=== PATIENT | male | born 1980 ===

== ENCOUNTER 2017-05-20 16:43 | Inpatient (IN) | payer OTHER ==
[2017-05-20] MEDS ORDERED: ONDANSETRON 4 MG/2 ML VIAL IVP PRN (19:36)
[2017-05-20] MEDS ORDERED: ACETAMINOPHEN TAB 325 MG TAB PO PRN (19:36)
[2017-05-20] MEDS: HYDROcodone/APAP 5-325MG 1 EACH TAB PO PRN (20:18)
[2017-05-20] MEDS: hydrALAZINE HCL 25 MG TAB PO SCH (20:21)
[2017-05-20] MEDS: SODIUM CHLORIDE 0.9% 1,000 ML IV SCH (20:21)
[2017-05-20 20:43] LABS: Basophils % (A) 0 %; CH 32.2; CHCM 36.6; Eosinophils # (A) 0.1 k/uL (0-0.7); Eosinophils % (A) 1 %; HCT 42.2 % (39.0-53.0); HDW 2.21; HGB 15.5 gm/dL (13.0-17.5); Luc % (Auto) 2; Lymphocytes # (A) 1.8 k/uL (1.0-4.8); Lymphocytes % (A) 17 %; MCH 32.4 pg (25.0-35.0); MCHC 36.7 g/dL (31.0-37.0); MCV 88.1 fL (80.0-100.0); Mean Platelet Volume 7.6; Monocytes # (A) 1.4 k/uL (0-1.0); Monocytes % (A) 14 %; Neutrophils # (A) 6.9 k/uL (1.3-7.7); Neutrophils % (A) 66 %; RBC 4.79 m/uL (4.30-5.90); RDW 12.6 % (11.5-15.5); WBC 10.3 k/uL (3.8-10.6); WBC (Perox) 10.44
[2017-05-20 20:52] LABS: Calcium 8.5 mg/dL (8.4-10.2); Potassium 3.4 mmol/L (3.5-5.1)
[2017-05-20 22:33] LABS: Appearance,Urine Cloudy (Clear); Bilirubin,Urine Negative (Negative); Glucose,Urine (UA) Negative (Negative); Ketones,Urine Negative (Negative); Leukocyte Esterase,Urine Negative (Negative); Mucus,Urine Rare /hpf; Nitrite,Urine Negative (Negative); Particle Count 2589; Protein,Urine Trace (Negative); RBC,Urine 2 /hpf (0-5); Squamous Epithelial Cell,Urine 1 /hpf (0-4); UA Billing (MACRO vs. MICRO) MICRO; Urobilinogen,Urine <2.0 mg/dL (<2.0); WBC,Urine 9 /hpf (0-5)
--- NOTE | 2017-05-20 23:54 | US ---
EXAM: US Retroperitoneal Limited, Renal CLINICAL HISTORY: Reason: acute renal failure TECHNIQUE: Real-time ultrasound of the retroperitoneum (limited) with image documentation. COMPARISON: None FINDINGS: Right kidney: Right kidney measures 13.1 cm in length. Normal appearance of the parenchyma. No hydronephrosis or stone. No mass. Left kidney: Left kidney measures 13.0 cm in length. Normal appearance of the parenchyma. No hydronephrosis or stone. No mass. Ureters: Nondilated. Bladder: Bilateral ureteral jets noted. No wall thickening or stone. No mass. IMPRESSION: Normal renal ultrasound.
[2017-05-21] MEDS ORDERED: TEMAZEPAM 15 MG CAP PO PRN (00:20)
[2017-05-21] MEDS: hydrALAZINE HCL 25 MG TAB PO SCH ×4 (00:21→22:41)
[2017-05-21] MEDS: HYDROmorphone 1 MG/ML 1 ML SYRINGE IVP PRN ×2 (03:59→22:42)
[2017-05-21] MEDS: SODIUM CHLORIDE 0.9% 1,000 ML IV SCH ×4 (04:14→20:14)
[2017-05-21] MEDS: HYDROcodone/APAP 5-325MG 1 EACH TAB PO PRN ×4 (05:59→20:27)
[2017-05-21 08:03] LABS: Calcium 8.4 mg/dL (8.4-10.2); Total Bilirubin 0.8 mg/dL (0.2-1.3); Total Protein 6.7 g/dL (6.3-8.2)
[2017-05-21] MEDS: NICOTINE 14MG/24HR PATCH TRANSDERM SCH (08:43)
[2017-05-21] MEDS ORDERED: PANTOPRAZOLE 40 MG/10 ML VIAL IVP SCH (09:00)
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
[2017-05-21 13:11] VITALS: BMI 25.2
[2017-05-22] MEDS: HYDROcodone/APAP 5-325MG 1 EACH TAB PO PRN ×3 (02:12→12:17)
[2017-05-22] MEDS: SODIUM CHLORIDE 0.9% 1,000 ML IV SCH (05:52)
[2017-05-22] MEDS ORDERED: PANTOPRAZOLE 40 MG TABLET PO SCH (07:30)
[2017-05-22 07:44] VITALS: BP 119/79; PULSE 62; RESP 18; TEMP 97
--- NOTE | 2017-05-22 08:00 | XR ---
EXAMINATION TYPE: XR chest 1V portable DATE OF EXAM: 05/22/2017 Comparison: None Clinical History: 36-year-old male with kidney failure, evaluate CHF Findings: The cardiomediastinal silhouette, aorta, and pulmonary vasculature are within normal limits. There i s some central peribronchial cuffing noted. Otherwise, lungs and pleural spaces are clear. Impression: Nonspecific central interstitial thickening. This could relate to mild fluid overload in the correct clinical setting. Otherwise, bronchitis or chronic asthma are alternative possibilities.
[2017-05-22 08:15] LABS: Basophils % (A) 0 %; CH 31.6; CHCM 34.6; Eosinophils # (A) 0.1 k/uL (0-0.7); Eosinophils % (A) 1 %; HCT 38.2 % (39.0-53.0); HDW 2.29; HGB 13.3 gm/dL (13.0-17.5); Luc # (Auto) 0.12; Luc % (Auto) 2; Lymphocytes # (A) 1.6 k/uL (1.0-4.8); Lymphocytes % (A) 29 %; MCH 31.8 pg (25.0-35.0); MCHC 34.8 g/dL (31.0-37.0); MCV 91.5 fL (80.0-100.0); Mean Platelet Volume 7.6; Monocytes # (A) 0.6 k/uL (0-1.0); Monocytes % (A) 11 %; Neutrophils # (A) 3.1 k/uL (1.3-7.7); Neutrophils % (A) 56 %; RBC 4.17 m/uL (4.30-5.90); RDW 12.6 % (11.5-15.5); WBC 5.5 k/uL (3.8-10.6); WBC (Perox) 5.64
[2017-05-22 08:25] LABS: Anion Gap 5 mmol/L; Blood Urea Nitrogen 17 mg/dL (9-20); Calcium 8.1 mg/dL (8.4-10.2); Carbon Dioxide 27 mmol/L (22-30); Chloride 108 mmol/L (98-107); Glucose 87 mg/dL (74-99); Non-African American GFR(MDRD) >60 (>60 ml/min/1.73 sqM); Potassium 4.3 mmol/L (3.5-5.1); Sodium 140 mmol/L (137-145)
[2017-05-22] MEDS: hydrALAZINE HCL 25 MG TAB PO SCH (09:15)
[2017-05-22] MEDS: NICOTINE 14MG/24HR PATCH TRANSDERM SCH (09:15)
[2017-05-22] MEDS: HYDROmorphone 1 MG/ML 1 ML SYRINGE IVP PRN (09:15)
--- NOTE | 2017-05-22 11:47 | P.PN ---
Subjective Principal diagnosis: This 36-year-old patient seen with acute kidney injury secondary to 1 depletion from nausea vomiting and probably some nonsteroidal use. His creatinine has improved down to normal today. Is feeling much better his walking. He has had some abdominal discomfort that has resolved now. Probably it was from severe vomiting and muscle sprain. His history on admission is as follows This is a 36-year-old patient who is seen in consultation because of acute kidney injury and hypokalemia. He had some back pains which she chronically has and took some Motrin 4 days ago. 3 days ago started her nausea vomiting sweating chills mild cough with white sputum. He vomited multiple times over the next 2-3 days until he came to the emergency room to an outside hospital and from where he was transferred here because of acute kidney injury. Supposedly the creatinine was 6. The creatinine here on admission was 4.1. He was hydrated and his creatinine is down to 1.71 this morning. Has no dysuria frequency hematuria kidney stones. No history of any bladder problems. He does have chronic back pain which radiates bilaterally down to his outer thighs for 2-3 units. He takes Motrin on and off for this or Advil or Aleve. No history of hemoptysis but did have some streaks in his vomitus after retching and then the last 2-3 times in the vomitus might have been dark. Denies taking any nonsteroidals other than 2 or 3 Motrins on Tuesday 4 days ago. No history of taking any herbal supplements. No history of taking any antibiotics. His mom has chronic kidney disease from diabetes not on dialysis. Patient does drink occasionally heavily as binge drinking. No history of any substance abuse. He works in the construction industry. Objective - Vital Signs Vital signs: Vital Signs Temp 97.0 F L 05/22/17 07:00 Pulse 62 05/22/17 07:00 Resp 18 05/22/17 07:00 BP 119/79 05/22/17 07:00 Pulse Ox 100 05/22/17 07:00 Intake & Output 05/21/17 05/22/17 05/22/17 18:59 06:59 18:59 Intake Total 600 Output Total 2200 1500 300 Balance -2200 -1500 300 Weight 75.438 kg 78.471 kg Intake: Oral 600 Output: Urine 2200 1500 300 Other: Voiding Method Urinal # Voids 2 On examination he is awake alert oriented walking around. " Are clear to auscultation percussion good air entry bilaterally Heart sounds are unremarkable no murmur rub gallop Abdomen soft nontender. Extremity exam no edema Neurologically awake alert oriented and walking back to normal. - Labs CBC & Chem 7: 05/22/17 07:50 05/22/17 07:48 Labs: Abnormal Lab Results - Last 24 Hours (Table) 05/22/17 05/22/17 Range/Units 07:48 07:50 RBC 4.17 L (4.30-5.90) m/uL Hct 38.2 L (39.0-53.0) % Chloride 108 H (98-107) mmol/L Calcium 8.1 L (8.4-10.2) mg/dL Assessment and Plan Plan: Impression. 1. Acute kidney injury from volume depletion from severe vomiting. Creatinine is down to normal 0.82 this morning. 2. Hypokalemia secondary to vomiting. Improved to 4.3 3. History of binge drinking. 4. Likely viral illness, resolved. Recommendation. Patient can be discharged
--- NOTE | 2017-05-22 12:03 | HP ---
DATE OF ADMISSION: 05/20/2017 CHIEF COMPLAINT: Elevated creatinine. HISTORY OF PRESENT ILLNESS. This 36 year old gentleman with a past medical history of cyst on the back, otherwise, back pain, DJD, history of previous renal failure, being followed by no primary physician in the area was living in [place]. The patient apparently was vomiting for the last three days. The patient having back pain also. The patient presented to. The patient was having significant. The patient presented to [facility]. Creatinine was elevated up to 6 and the patient was transferred to [facility] as a direct admission at this time. IV fluids initiated. Creatinine currently 4.1. Otherwise, there is no history of fevers, rigors or chills. No history of headache, loss of consciousness or seizures at this time. Nephrology evaluation in progress. PAST MEDICAL HISTORY: History of DJD, history of cyst on the back. Home medications are: 1. Aspirin. 2. Caffeine. 3. Excedrin prn. ALLERGIES: None. FAMILY HISTORY: History of diabetes, hypertension, in the family. SOCIAL HISTORY: History of alcohol, smoking daily. REVIEW OF SYSTEMS: ENT: No diminished vision. No diminished hearing. CARDIOVASCULAR: S1, S2. No angina or palpitations. RESPIRATORY: No cough or hemoptysis. GI: As mentioned earlier. : As mentioned earlier. NERVOUS SYSTEM: No numbness or weakness. ALLERGY/IMMUNOLOGY: No asthma or hayfever. MUSCULOSKELETAL: As mentioned earlier. HEMATOLOGY/ONCOLOGY: No history of anemia. ENDOCRINE: No history of diabetes or hypothyroidism. CONSTITUTIONAL: As mentioned earlier. DERMATOLOGY: Negative. RHEUMATOLOGY: Negative. PSYCHIATRIC: As mentioned earlier. PHYSICAL EXAMINATION: Alert and oriented times three. Pulse 88. Blood pressure is 143/81. Respiratory rate 22, temperature 97.2. Pulse ox 94% on room air. Oral mucosa dry. NECK: No JVD. No thyroid enlargement. No carotid bruit. CARDIOVASCULAR: S1, S2 muffled. No S3, no S4. RESPIRATORY: Breath sounds diminished at the bases. No rhonchi. No crackles. ABDOMEN: Soft, mild diffuse discomfort. No guarding. No rigidity. No mass palpable. LEGS: No edema. No swelling. NERVOUS SYSTEM: Higher functions as mentioned. Moves all four limbs. No focal motor or sensory deficits. LYMPHATICS: No lymph nodes palpable in the neck or axilla. SKIN: No ulcer, rash or bleeding. LABS: CBC within normal limits. Sodium 130. Potassium 4.1. Glucose 121. UA noted. ASSESSMENT: 1. Acute renal failure, possibly prerenal renal failure and acute tubular necrosis present on admission. 2. Vomiting, possible gastritis. 3. Hyponatremia. 4. Hypokalemia. 5. Increased random blood sugar. RECOMMENDATIONS AND DISCUSSION: In this 36 year old gentleman who presented with multiple complex medical issues, we will monitor the patient closely, continue the current medications. Continue symptomatic treatment. We will initiate IV fluids. Avoid nephrotoxic medications. Symptomatic treatment. Repeat labs. Guarded prognosis because of multiple complex medical issues. Further recommendations to follow. MTDD
--- NOTE | 2017-05-23 13:20 | PN ---
DATE OF SERVICE: 05/21/2017 This 36-year-old gentleman admitted with acute renal failure, has creatinine of 4.1, given IV hydration and improved with 1.7. No chest pain, no palpitations. No fever. Nephrology is following the patient, Dr. Layton. On exam, alert and oriented x3. Pulse 88, blood pressure 140/80, respirations 20, temperature 97.4, pulse ox 94% on room air. HEENT: Conjunctivae normal. NECK: No jugular venous distention. CARDIOVASCULAR: S1, S2. RESPIRATORY: Breath sounds diminished in the bases. No rhonchi, no crackles. ABDOMEN: Soft, nontender. LEGS: No edema. NERVOUS SYSTEM: No focal deficits. LABS: Creatinine 1.7, other labs are noted. ASSESSMENT: 1. Acute renal failure, possible prerenal factors, acute tubular necrosis, improving. 2. Hyponatremia. 3. Hypokalemia. 4. Increased creatinine kinase. 5. Gastritis. RECOMMENDATIONS AND DISCUSSION: I recommend to continue the current medications , continue monitoring and symptomatic treatment. Otherwise continue the IV fluids. Closely follow with nephrology. further recommendations to follow. NICHOLASD
--- NOTE | 2017-05-24 08:31 | DS ---
FINAL DIAGNOSES: 1. Acute renal failure, possible prerenal failure with acute tubular necrosis, present on admission with dehydration. 2. Vomiting possibly acute gastritis. 3. Hyponatremia. 4. Hypokalemia. 5. Increased random blood sugar. DISCHARGE DISPOSITION: The patient is being discharged in stable condition with guarded prognosis. HISTORY OF PRESENT ILLNESS: This 36 year old gentleman with past medical history of multiple medical problems admitted with elevated creatinine as well as acute renal failure, possible prerenal, treated with IV fluids, improved significantly. Creatinine normalized at 0.82 from 4.18 into 6 in the outside hospital. On exam, vital signs are stable. Cardiovascular: S1, S2. Abdomen soft. Nervous system: No focal deficits. DISCHARGE ADVICE AND MEDICATIONS: 1. Diet is cardiac. 2. Activity limited until follow up. 3. Follow up with primary physician in two to three days. 4. CBC, BMP in the outpatient setting. 5. Follow up with nephrology as recommended. 6. Avoid nephrotoxic medications. 7. Tylenol 650 q6h prn. 8. Aspirin, caffeine two tablets q6h prn for migraines. 9. Habitrol 14 daily. MTDD
== END 2017-05-22 13:59 | disposition home or self-care (01) | DRG 683 ==
LOC: 4MS4W 18:51
PROVIDERS: ADMIT Hospitalist; ATTEND Hospitalist
DX: N17.9 Acute kidney failure, unspecified (principal); E87.1 Hypo-osmolality and hyponatremia; E86.0 Dehydration; K29.70 Gastritis, unspecified, without bleeding; F17.200 Nicotine dependence, unspecified, uncomplicated; M19.91 Primary osteoarthritis, unspecified site; G89.29 Other chronic pain; M54.9 Dorsalgia, unspecified; Z79.82 Long term (current) use of aspirin
CPT/HCPCS: 71010; 76770; 80048; 80053; 81001; 82550; 85025